=== PATIENT | female | born 1970 | race Caucasian/White ===

== ENCOUNTER 2019-08-13 11:50 | Emergency (ER) | payer SELFPAY ==
[2019-08-13 12:23] VITALS: BP 119/86; PULSE 107
[2019-08-13] MEDS ORDERED: Clindamycin HCl 150 MG Cap PO ONE (12:35)
[2019-08-13] MEDS ORDERED: cefTRIAXone 2 GM in Sodium Chloride 0.9% 50 ML IV ONE (12:36)
--- NOTE | 2019-08-13 12:39 | EDM.PDOC ---
ED HPI GENERAL MEDICAL PROBLEM - General Chief Complaint: ENT Problem Stated Complaint: FEVER, CHILLS, REDNESS ON LT SIDE OF FACE Time Seen by Provider: 08/13/19 12:25 Source of Information: Reports: Patient History Limitations: Reports: No Limitations - History of Present Illness INITIAL COMMENTS - FREE TEXT/NARRATIVE: 49-year-old female with a somewhat tender, erythematous and warm left lateral face and ear for the past 36 hours. No dental pain, she does have some ear discomfort in her ears "draining off and on". Low-grade fever today, no nausea or vomiting. 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: Psychiatric History: Reports: Anxiety, Bipolar - Infectious Disease History Infectious Disease History: Reports: Chicken Pox - Past Surgical History HEENT Surgical History: Reports: Myringotomy w Tube(s), Tonsillectomy Other HEENT Surgeries/Procedures: adenoids Social & Family History - Tobacco Use Smoking Status *Q: Current Every Day Smoker Years of Tobacco use: 30 Packs/Tins Daily: 0.5 Used Tobacco, but Quit: No Second Hand Smoke Exposure: Yes - Caffeine Use Caffeine Use: Reports: Coffee, Soda, Tea - Recreational Drug Use Recreational Drug Use: No ED ROS ENT - Review of Systems Review Of Systems: See Below Constitutional: Reports: Fever, Chills, Malaise HEENT: Reports: Ear Pain (Left side). Denies: Throat Pain Respiratory: Denies: Shortness of Breath, Cough Cardiovascular: Denies: Chest Pain GI/Abdominal: Denies: Diarrhea, Nausea, Vomiting Skin: Reports: Erythema, Other (She has significant erythema of the left side of the face with diffuse edema and erythema of the ear on the left side) Neurological: Reports: Headache ED EXAM, ENT - Physical Exam Exam: See Below Exam Limited By: No Limitations General Appearance: Alert, No Apparent Distress Eye Exam: Bilateral Eye: EOMI Ears: Other (Both tympanic membranes look normal. She has marked cellulitic changes of the left ear, the preauricular area and temporal area of the scalp with some extension onto the neck. It is warm to touch and somewhat tender.) Respiratory/Chest: No Respiratory Distress, Lungs Clear Cardiovascular: Regular Rate, Rhythm, Tachycardia Neurological: Alert, Oriented Course - Vital Signs Last Recorded V/S: Last Vital Signs Temp 97.1 F 08/13/19 12:22 Pulse 107 H 08/13/19 12:22 Resp 18 08/13/19 12:22 BP 119/86 08/13/19 12:22 Pulse Ox 98 08/13/19 12:22 - Orders/Labs/Meds Meds: Medications Discontinued Medications Generic Name Dose Route Start Last Admin Trade Name Kobeq PRN Reason Stop Dose Admin Clindamycin HCl 300 mg 08/13/19 12:35 08/13/19 12:51 Cleocin PO 08/13/19 12:36 300 mg ONETIME ONE Administration Ceftriaxone Sodium 2 gm/ 50 mls @ 100 mls/hr 08/13/19 12:36 08/13/19 12:50 Sodium Chloride IV 08/13/19 13:05 100 mls/hr ONETIME ONE Administration - Re-Assessments/Exams Free Text/Narrative Re-Assessment/Exam: 08/13/19 12:38 No fever currently. I could not find the source of infection, the tympanic membrane is intact and there is no drainage or otitis media at this time. It may have started as an otitis externa. She was given 2 g of Rocephin IV, and 300 mg of oral clindamycin and will be continued on clindamycin and asked to return tomorrow for recheck and possible second dose of Rocephin. 08/13/19 13:18 Patient will continue on oral clindamycin 300 mg 3 times daily and return tomorrow for recheck and another dose of Rocephin. She can return sooner if worsening. Departure - Departure Time of Disposition: 13:33 Disposition: Home, Self-Care 01 Clinical Impression: Diffuse cellulitis of face - Discharge Information Instructions: Cellulitis, Adult, [id number] Referrals: PCP,None [Primary Care Provider] - Forms: ED Department Discharge Care Plan Goals: Continue taking clindamycin as discussed, return tomorrow for recheck. Return sooner if worsening such as vomiting the medication or having increased pain or symptoms. Sepsis Event Note - Evaluation Sepsis Screening Result: No Definite Risk - Focused Exam Vital Signs: Vital Signs Temp Pulse Resp BP Pulse Ox 08/13/19 12:22 97.1 F 107 H 18 119/86 98 Date Exam was Performed: 08/13/19 Time Exam was Performed: 14:47
== END 2019-08-13 13:33 | disposition home or self-care (01) ==
LOC: JP.ED 11:50
DX: L03.211 Cellulitis of face (principal); J45.909 Unspecified asthma, uncomplicated; F17.210 Nicotine dependence, cigarettes, uncomplicated; Z79.899 Other long term (current) drug therapy; Z88.5 Allergy status to narcotic agent
CPT/HCPCS: 96365; 99283; 99284; A9270; J0696; J7050

== ENCOUNTER 2019-08-14 08:32 | Emergency (ER) | payer SELFPAY ==
[2019-08-14 09:02] VITALS: BP 120/74; PULSE 88
[2019-08-14] MEDS ORDERED: cefTRIAXone 1 GM in Sodium Chloride 0.9% 50 ML IV ONE (09:06)
[2019-08-14] MEDS ORDERED: methylPREDNISolone Sodium Succinate 125 MG/2 ML SDV IVPUSH ONE (09:36)
--- NOTE | 2019-08-14 09:47 | EDM.PDOC ---
ED HPI GENERAL MEDICAL PROBLEM - General Chief Complaint: Skin Complaint Stated Complaint: RECHECK NOT MUCH IMPROVEMENT Time Seen by Provider: 08/14/19 09:05 Source of Information: Reports: Patient History Limitations: Reports: No Limitations - History of Present Illness INITIAL COMMENTS - FREE TEXT/NARRATIVE: 41-year-old female was seen yesterday with left facial cellulitis and your cellulitis, given IV Rocephin and started on oral clindamycin. She is back today , claiming she doesn't feel much better but objectively she looks better. There is less swelling of the ear and less erythema the peripheral reticular area. She thinks she's been having intermittent fevers with occasional sweats, no visual concerns, no nausea or vomiting and is tolerating the medicine well. Still thinks that ear is "draining". Location: Reports: Other (Left face and left ear) Associated Symptoms: Reports: Fever/Chills Left Ear Pain Score (Numeric/FACES): 7 - Related Data Allergies Allergy/AdvReac Type Severity Reaction Status Date / Time codeine AdvReac Nausea and Verified 08/14/19 08:46 Vomiting Home Meds: Home Meds FLUoxetine [PROzac] 10 mg PO DAILY 08/13/19 [History] Clindamycin HCl 300 mg PO TID 08/14/19 [History] Past Medical History Cardiovascular History: Reports: Other (See Below) Other Cardiovascular History: svt Respiratory History: Reports: Asthma Genitourinary History: Reports: Other (See Below) Other Genitourinary History: hematuria 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: Psychiatric History: Reports: Anxiety, Bipolar - Infectious Disease History Infectious Disease History: Reports: Chicken Pox - Past Surgical History HEENT Surgical History: Reports: Myringotomy w Tube(s), Tonsillectomy Other HEENT Surgeries/Procedures: adenoids Social & Family History - Tobacco Use Smoking Status *Q: Current Every Day Smoker Years of Tobacco use: 30 Packs/Tins Daily: 0.5 - Caffeine Use Caffeine Use: Reports: Coffee, Soda, Tea - Recreational Drug Use Recreational Drug Use: No ED ROS GENERAL - Review of Systems Review Of Systems: See Below Constitutional: Reports: Fever, Chills, Malaise HEENT: Reports: Ear Pain (Left side with ear drainage) Respiratory: Denies: Shortness of Breath, Cough Cardiovascular: Denies: Chest Pain Skin: Reports: Erythema (Left face and left ear) Neurological: Reports: Headache Psychiatric: Reports: No Symptoms ED EXAM, SKIN/RASH Exam: See Below Exam Limited By: No Limitations General Appearance: Alert, No Apparent Distress Eye Exam: Bilateral Eye: Normal Inspection Ears: Other (Left ear still has diffuse erythema but improved, less tenderness to palpation) Head: Other (Patient has erythema over the left temporal area extending up on the left parietal scalp) Respiratory/Chest: No Respiratory Distress, Lungs Clear Cardiovascular: Regular Rate, Rhythm Course - Vital Signs Last Recorded V/S: Last Vital Signs Temp 96.9 F 08/14/19 08:50 Pulse 88 08/14/19 08:50 Resp 12 08/14/19 08:50 BP 120/74 08/14/19 08:50 Pulse Ox 97 08/14/19 08:50 - Orders/Labs/Meds Labs: Laboratory Tests 08/14/19 08/14/19 Range/Units 09:07 09:07 WBC 8.7 (4.5-11.0) K/uL RBC 5.01 (3.30-5.50) M/uL Hgb 15.5 H (12.0-15.0) g/dL Hct 46.7 (36.0-48.0) % MCV 93 (80-98) fL MCH 31 (27-31) pg MCHC 33 (32-36) % Plt Count 223 (150-400) K/uL Neut % (Auto) 68 H (36-66) % Lymph % (Auto) 17 L (24-44) % [place] % (Auto) 14 H (2-6) % Eos % (Auto) 1 L (2-4) % Baso % (Auto) 0 (0-1) % C-Reactive Protein 7.84 H (0.0-0.3) mg/dL Meds: Medications Discontinued Medications Generic Name Dose Route Start Last Admin Trade Name Freq PRN Reason Stop Dose Admin Ceftriaxone Sodium 1 gm/ 50 mls @ 100 mls/hr 08/14/19 09:06 08/14/19 09:15 Sodium Chloride IV 08/14/19 09:35 100 mls/hr ONETIME ONE Administration Methylprednisolone Sodium Succinate 125 mg 08/14/19 09:36 08/14/19 09:40 Solu-Medrol IVPUSH 08/14/19 09:37 125 mg ONETIME ONE Administration - Re-Assessments/Exams Free Text/Narrative Re-Assessment/Exam: 08/14/19 09:59 1 g of Rocephin and 125 mg of IV Solu-Medrol was given IV. IV will be left in place and she'll be rechecked more time tomorrow. White count was normal but CRP is elevated at just over 7. Departure - Departure Time of Disposition: 10:08 Disposition: Home, Self-Care 01 Clinical Impression: Facial cellulitis - Discharge Information Instructions: Cellulitis, Adult, [id number] Referrals: PCP,None [Primary Care Provider] - Forms: ED Department Discharge Care Plan Goals: Return tomorrow morning for 1 more recheck and round of medication, continue clindamycin and anti-inflammatories. Sepsis Event Note - Evaluation Sepsis Screening Result: No Definite Risk - Focused Exam Vital Signs: Vital Signs Temp Pulse Resp BP Pulse Ox 08/14/19 08:50 96.9 F 88 12 120/74 97 08/14/19 08:48 96.9 F 88 12 120/74 97 Date Exam was Performed: 08/14/19 Time Exam was Performed: 11:10
== END 2019-08-14 10:08 | disposition home or self-care (01) ==
LOC: JP.ED 08:32
DX: L03.211 Cellulitis of face (principal); F17.210 Nicotine dependence, cigarettes, uncomplicated; Z88.5 Allergy status to narcotic agent
CPT/HCPCS: 36415; 85025; 86140; 96365; 96375; 99283; 99284; J0696; J2930; J7050

== ENCOUNTER 2019-08-15 09:47 | Emergency (ER) | payer SELFPAY ==
[2019-08-15 09:57] VITALS: BP 125/84; PULSE 90
[2019-08-15] MEDS ORDERED: cefTRIAXone 1 GM in Sodium Chloride 0.9% 50 ML IV ONE ×2 (10:03→10:15)
[2019-08-15] MEDS ORDERED: methylPREDNISolone Sodium Succinate 125 MG/2 ML SDV IVPUSH ONE (10:03)
--- NOTE | 2019-08-15 10:06 | EDM.PDOC ---
ED HPI GENERAL MEDICAL PROBLEM - General Chief Complaint: Skin Complaint Stated Complaint: RECHECK,IV THERAPY Time Seen by Provider: 08/15/19 10:00 Source of Information: Reports: Patient History Limitations: Reports: No Limitations - History of Present Illness INITIAL COMMENTS - FREE TEXT/NARRATIVE: 49-year-old female with facial cellulitis on the left side returns for a recheck and IV therapy. She is markedly improving with less swelling and erythema, no fevers or chills. Onset: Gradual Associated Symptoms: Reports: Other (Superficial itching of the infected area). 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: Psychiatric History: Reports: Anxiety, Bipolar - Infectious Disease History Infectious Disease History: Reports: Chicken Pox - Past Surgical History HEENT Surgical History: Reports: Myringotomy w Tube(s), Tonsillectomy Other HEENT Surgeries/Procedures: adenoids Social & Family History - Caffeine Use Caffeine Use: Reports: Coffee, Soda, Tea - Recreational Drug Use Recreational Drug Use: No ED ROS GENERAL - Review of Systems Review Of Systems: See Below Constitutional: Denies: Fever, Chills, Malaise HEENT: Reports: Other (Still some mild discomfort around the ear but mostly itching, much less swelling) Respiratory: Reports: No Symptoms GI/Abdominal: Denies: Nausea, Vomiting ED EXAM, SKIN/RASH Exam: See Below Exam Limited By: No Limitations General Appearance: Alert, No Apparent Distress Ears: Other (Erythema and slight swelling of the left ear including the preauricular area and temporal area of the scalp and lateral left face) Head: Other (Erythematous skin of the ear and face as described above) Respiratory/Chest: No Respiratory Distress Course - Vital Signs Last Recorded V/S: Last Vital Signs Temp 97.1 F 08/15/19 09:56 Pulse 90 08/15/19 09:56 Resp 20 08/15/19 09:56 BP 125/84 08/15/19 09:56 Pulse Ox 98 08/15/19 09:56 - Orders/Labs/Meds Meds: Medications Discontinued Medications Generic Name Dose Route Start Last Admin Trade Name [place] PRN Reason Stop Dose Admin Ceftriaxone Sodium 1 gm/ 50 mls @ 100 mls/hr 08/15/19 10:15 08/15/19 10:14 Sodium Chloride IV 08/15/19 10:44 100 mls/hr ONETIME ONE Administration Methylprednisolone Sodium Succinate 125 mg 08/15/19 10:03 08/15/19 10:08 Solu-Medrol IVPUSH 08/15/19 10:04 125 mg ONETIME ONE Administration - Re-Assessments/Exams Free Text/Narrative Re-Assessment/Exam: 08/15/19 10:06 1 more gram of Rocephin with 125 mg of Solu-Medrol will be given IV and the patient then will be transferred over to just oral clindamycin. 08/15/19 10:56 IV was pulled, patient will finish her clindamycin which she has 3 more days and should continue to improve. She'll return if worsening. Departure - Departure Time of Disposition: 11:08 Disposition: Home, Self-Care 01 Clinical Impression: Facial cellulitis - Discharge Information Instructions: Cellulitis, Adult, [id number] Referrals: PCP,None [Primary Care Provider] - Forms: ED Department Discharge Care Plan Goals: Finish antibiotic as prescribed, topical hydrocortisone may help with itching. Return in 2-3 days of worsening instead of improving. Sepsis Event Note - Evaluation Sepsis Screening Result: No Definite Risk - Focused Exam Vital Signs: Vital Signs Temp Pulse Resp BP Pulse Ox 08/15/19 09:56 97.1 F 90 20 125/84 98 Date Exam was Performed: 08/15/19 Time Exam was Performed: 11:22
== END 2019-08-15 11:08 | disposition home or self-care (01) ==
LOC: JP.ED 09:47
DX: L03.211 Cellulitis of face (principal); J45.909 Unspecified asthma, uncomplicated; F41.9 Anxiety disorder, unspecified; Z88.5 Allergy status to narcotic agent; Z79.899 Other long term (current) drug therapy
CPT/HCPCS: 96365; 96375; 99283; J0696; J2930; J7050; 99284

== ENCOUNTER 2019-09-23 10:44 | Emergency (ER) | payer MEDICAID, OTHER ==
[2019-09-23 11:03] VITALS: BP 118/75; PULSE 115
--- NOTE | 2019-09-23 11:12 | EDM.PDOC ---
ED HPI GENERAL MEDICAL PROBLEM - General Chief Complaint: Respiratory Problem Stated Complaint: COUGH, CONGESTED Time Seen by Provider: 09/23/19 11:04 Source of Information: Reports: Patient History Limitations: Reports: No Limitations - History of Present Illness INITIAL COMMENTS - FREE TEXT/NARRATIVE: Patient presents for evaluation of upper respiratory symptoms that began a couple of weeks ago. Recently, several weeks back, she was treated for facial cellulitis with antibiotics. That condition resolved and it seems like after that and did these current symptoms began. She's had nasal stuffiness with drainage, mildly sore throat, cough nonproductive, generalized muscle aches and fatigue. She has a history of intermittent asthma for which she takes albuterol from time to time although she has not used it much through this current illness. She has felt a little warm but no distinct fever. If uncomfortable, she will take Tylenol or ibuprofen but in general prefers not to take any more medications than she needs to. Because of persistent symptoms, she presented today. Onset: Gradual Duration: Week(s): (2) Location: Reports: Head, Generalized Quality: Reports: Ache Severity: Mild Improves with: Reports: None Worsens with: Reports: None - Related Data Allergies Allergy/AdvReac Type Severity Reaction Status Date / Time codeine AdvReac Nausea and Verified 09/23/19 11:15 Vomiting Home Meds: Home Meds FLUoxetine [PROzac] 10 mg PO DAILY 08/13/19 [History] Past Medical History Cardiovascular History: Reports: Other (See Below) Other Cardiovascular History: svt Respiratory History: Reports: Asthma Genitourinary History: Reports: Other (See Below) Other Genitourinary History: 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 Denies: Fever, Chills, Night Sweats HEENT: Reports: Rhinitis, Throat Pain, Other (A small bruising area developed on her right lower eyelid overnight after intense coughing.) Respiratory: Reports: Cough (Nonproductive). Denies: Wheezing Cardiovascular: Reports: No Symptoms GI/Abdominal: Reports: No Symptoms Musculoskeletal: Reports: Muscle Pain ED EXAM, GENERAL - Physical Exam Exam: See Below Free Text/Narrative:: She is seated on the bed in room to with a mask. She can answer questions without coughing and has a nasal voice. Exam Limited By: No Limitations General Appearance: Alert, Mild Distress Eye Exam: Right Eye: Other (There is a 3 mm oval area of ecchymosis at the medial aspect of the right lower eyelid. It is nontender.) Nose: Nasal Swelling, Nasal Drainage Throat/Mouth: Inflammation (Mild) Neck: Supple, Non-Tender Respiratory/Chest: Lungs Clear Cardiovascular: Regular Rate, Rhythm, Tachycardia Course - Vital Signs Last Recorded V/S: Last Vital Signs Temp 36.3 C 09/23/19 11:14 Pulse 115 H 09/23/19 11:14 Resp 16 09/23/19 11:14 BP 118/75 09/23/19 11:14 Pulse Ox 97 09/23/19 11:14 - Orders/Labs/Meds Orders: Active Orders 24 hr Category Date Time Status Chest 2V [CR] Stat Exams 09/23/19 11:12 Ordered RED BLOOD CELLS LP [BBK] Stat Lab 09/23/19 12:37 Ordered TYPE AND SCREEN [BBK] Stat Lab 09/23/19 12:37 Ordered Isolation [COMM] Routine Oth 09/23/19 11:12 Ordered - Re-Assessments/Exams Free Text/Narrative Re-Assessment/Exam: 09/23/19 11:18 We'll obtain an influenza swab and also a chest x-ray. She is not wheezing at this time although we discussed use of a spacer with her albuterol inhaler. She declined analgesics at this time. 09/23/19 12:33 Influenza testing and x-ray are negative with her asthma history, she is probably more irritated from this viral syndrome and that is contributing to her cough. She was sent with prescriptions for prednisone 20 mg, 10 tablets; albuterol metered-dose inhaler, 1 unit; benzonatate 100 mg, 15 capsules; all use as directed. We discussed appropriate use of spacer and inhaler technique. Also recommend not using Q-tips in her ears to reduce long-term itching and infection risk. She was discharged in stable condition. Departure - Departure Time of Disposition: 12:35 Disposition: Home, Self-Care 01 Condition: Good Clinical Impression: Viral syndrome Exacerbation of asthma Qualifiers: Asthma severity: mild Asthma persistence: intermittent Qualified Code(s): J45.21 - Mild intermittent asthma with (acute) exacerbation - Discharge Information *PRESCRIPTION DRUG MONITORING PROGRAM REVIEWED*: Not Applicable *COPY OF PRESCRIPTION DRUG MONITORING REPORT IN PATIENT DEA: Not Applicable Referrals: PCP,None [Primary Care Provider] - Forms: ED Department Discharge Additional Instructions: Ensure adequate hydration. Use Tylenol or similar analgesics to improve comfort. Use your albuterol inhaler with the spacer as instructed. Begin your prednisone today and complete all 5 days. For additional cough help, use the benzonatate capsules. Recheck with primary care if not improved in 7-10 days. Return to ER if feeling worse in anyway. Sepsis Event Note - Focused Exam Vital Signs: Vital Signs Temp Pulse Resp BP Pulse Ox 09/23/19 11:14 36.3 C 115 H 16 118/75 97 09/23/19 11:02 36.3 C 115 H 16 118/75 97 Date Exam was Performed: 09/23/19 Time Exam was Performed: 12:38 - My Orders Last 24 Hours: My Active Orders 09/23/19 11:12 Chest 2V [CR] Stat Isolation [COMM] Routine - Assessment/Plan Last 24 Hours: My Active Orders 09/23/19 11:12 Chest 2V [CR] Stat Isolation [COMM] Routine
--- NOTE | 2019-09-25 10:12 | CR ---
CHEST: 2 view CLINICAL HISTORY:Cough and fever COMPARISON:None FINDINGS: The heart size, pulmonary vascularity and hilar structures are normal. No infiltrate effusion or pneumothorax is seen. Lungs appear mildly hyperaerated. IMPRESSION: No acute cardiopulmonary process.
== END 2019-09-23 12:46 | disposition home or self-care (01) ==
LOC: JP.ED 10:44
DX: J45.21 Mild intermittent asthma with (acute) exacerbation (principal); B34.9 Viral infection, unspecified; R23.3 Spontaneous ecchymoses; F41.9 Anxiety disorder, unspecified; F31.9 Bipolar disorder, unspecified; Z88.5 Allergy status to narcotic agent; Z79.899 Other long term (current) drug therapy
CPT/HCPCS: 71046; 71046-26; 87804; 87804-59; 99283; 99283-25